=== PATIENT | male | born 1980 | race Caucasian/White ===

== ENCOUNTER 2023-01-18 14:00 | Emergency (ER) | payer OTHER ==
[~2023-01-18] VITALS: Ht 190.5 cm; Wt 97.0 kg
[2023-01-18] MEDS ORDERED: IBUPROFEN 600 MG TAB PO ONE ×2 (14:09→14:15)
[2023-01-18] MEDS ORDERED: HYDROcodone-ACET 10/325MG TAB PO ONE (16:00)
[2023-01-18] MEDS ORDERED: HYDR-4902 PO (16:18)
[2023-01-18 18:07] VITALS: BP 132/90
== END 2023-01-18 18:09 | disposition home or self-care (01) ==
LOC: ER 14:00
DX: S52.501A Unspecified fracture of the lower end of right radius, initial encounter for closed fracture (principal); S52.601A Unspecified fracture of lower end of right ulna, initial encounter for closed fracture; R51.9 Headache, unspecified; F12.10 Cannabis abuse, uncomplicated; W19.XXXA Unspecified fall, initial encounter; Y93.89 Activity, other specified; Y92.89 Other specified places as the place of occurrence of the external cause; Y99.8 Other external cause status
CPT/HCPCS: 29125; 70486; 73090; 73110